=== PATIENT | female | born 1990 | race Hispanic/Latino ===

== ENCOUNTER 2019-06-03 09:50 | Emergency (ER) | payer OTHER ==
[2019-06-03] MEDS ORDERED: Acetaminophen 500 MG TAB ONE (11:11)
[2019-06-03] MEDS ORDERED: Ibuprofen 200 MG TAB ONE (11:11)
[2019-06-03] MEDS ORDERED: Ondansetron ODT 4 MG TAB ONE (11:51)
== END 2019-06-03 12:16 | disposition home or self-care (01) ==
LOC: ERS 09:50
DX: J10.1 Influenza due to other identified influenza virus with other respiratory manifestations (principal); F32.9 Major depressive disorder, single episode, unspecified
CPT/HCPCS: 87081; 87430; 87804; 99283; Q0162